=== PATIENT | male | born 1965 | race African-American/Black ===

== ENCOUNTER → 2018-08-04 06:40 | Outpatient (CLI) | payer OTHER, SELFPAY ==
[2018-07-17 06:29] VITALS: BMI 32.3
--- NOTE | 2018-08-04 07:42 | CT_ITS ---
STUDY: CT CHEST WITHOUT CONTRAST REASON FOR EXAM: Male, 53 years old. Pulmonary silicosis RADIATION DOSAGE (If Supplied By Facility): CTDIvol = ( 14.8 ) mGy, DLP = ( 528.65 ) mGycm TECHNIQUE: Transaxial imaging was performed without the administration of intravenous contrast material. Coronal and sagittal reformatted images were created. Individualized dose optimization techniques were used for this CT. COMPARISON: None FINDINGS: There are scattered mild groundglass opacities noted in the lungs. There are no focal infiltrates or pleural effusions. There are no pulmonary nodules or masses. There is no pneumothorax. The heart and pericardium are within normal limits. There is no thoracic lymphadenopathy. There is no evidence of thoracic aortic aneurysm. Images through the upper abdomen demonstrate no significant abnormality. There are no destructive osseous lesions. CT/Chest without Contrast IMPRESSION: Scattered mild ground glass opacity is noted in the lungs. This is nonspecific and can be due to infection, inflammation or edema. Electronically Signed: Kane García, at 19:35 EST Tel , Service support ,
--- NOTE | 2018-08-04 12:11 | PFT ---
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 Respiratory therapy reports good patient effort. Bronchodilators were used during testing. INTERPRETATION: Forced expiration spirometry demonstrates no evidence of a large airways obstructive ventilatory defect. There was no significant response to aerosolized bronchodilators. Spirograms are of good quality and plateau normally. Body plethysmography was performed and reveals lung volumes to be within normal limits. Diffusing capacity by single breath CO is also within normal limits at 90% of predicted. IMPRESSION: Grossly normal pulmonary function studies.
== END ==
PROVIDERS: Family Provider Family Medicine; PCP Family Medicine; Referring Provider Internal Medicine Critical Care Medicine; Visit Provider Internal Medicine Critical Care Medicine
DX: Z77.29 Contact with and (suspected) exposure to other hazardous substances (principal); F17.210 Nicotine dependence, cigarettes, uncomplicated
CPT/HCPCS: 71250; 94060; 94726; 94729

== ENCOUNTER → 2019-08-17 07:00 | Outpatient (CLI) | payer OTHER, SELFPAY ==
[2019-05-22 13:48] VITALS: BMI 32.3
--- NOTE | 2019-08-18 10:05 | PFT ---
INTRODUCTION: The patient is a 54-year-old -[place] male who presents for pulmonary function studies secondary to a diagnosis of chemical exposure. Respiratory therapy reports good patient effort. Bronchodilators were used during testing. INTERPRETATION: Forced expiration spirometry demonstrates no evidence of a large airways obstructive ventilatory defect. There was no significant response to aerosolized bronchodilators, based upon strict ATS criteria. Spirograms are of good quality and plateau normally. Body plethysmography was performed and reveals lung volumes to be within normal limits. Diffusing capacity by single breath CO is also within normal limits. IMPRESSION: Grossly normal pulmonary function studies.
== END ==
PROVIDERS: PCP Family Medicine; Referring Provider Internal Medicine Critical Care Medicine; Visit Provider Internal Medicine Critical Care Medicine
DX: Z77.29 Contact with and (suspected) exposure to other hazardous substances (principal); F17.210 Nicotine dependence, cigarettes, uncomplicated
CPT/HCPCS: 94060; 94726; 94729

== ENCOUNTER → 2023-12-23 | Outpatient (CLI) | payer OTHER, SELFPAY | END | disposition home or self-care (01) | PROVIDERS: PCP Family Medicine; Referring Provider Internal Medicine Critical Care Medicine; Visit Provider Internal Medicine Critical Care Medicine | DX: F17.210 Nicotine dependence, cigarettes, uncomplicated (principal) | CPT/HCPCS: 94060; 94726; 94729 ==

== ENCOUNTER → 2024-03-11 | Outpatient (CLI) | payer OTHER, SELFPAY ==
--- NOTE | 2024-03-11 16:37 | CT_ITS ---
STUDY: CT CHEST WITHOUT CONTRAST REASON FOR EXAM: Male, 58 years old. Silica exposure, f/u G[facility] on prior CT RADIATION DOSAGE (If Supplied By Facility): CTDIvol = ( 18.89 ) mGy, DLP = ( 764.78 ) mGycm TECHNIQUE: Transaxial imaging was performed without the administration of intravenous contrast material. Multiplanar coronal and sagittal images were reformatted. Individualized dose optimization techniques were used for this CT. COMPARISON: Comparison is made with prior study dated February 01, 2019 and outside examination dated October 15, 2023.. FINDINGS: CHEST Residual focal area of groundglass appearance in the lateral aspect of the right middle lobe. This has improved as compared to prior study. There is also evidence of groundglass appearance in the posterior aspect of the right middle lobe. This is unchanged. Focal areas of groundglass appearance once again seen in the lower lobes bilaterally slightly more prominent on the right side. These have improved as compared to prior study. There is no demonstrated pleural abnormality. There are mild calcifications of the coronary arteries. There are multiple small lymph nodes within the mediastinum, which are normal in size and morphology most compatible with reactive lymph hyperplasia. Normal hilar regions. Normal unenhanced pulmonary arteries. There is atherosclerotic calcification of the aortic arch. Normal osseous structures. There is no demonstrated abnormality of the visualized upper abdomen. CT/Chest without Contrast IMPRESSION: Persistent bilateral areas of groundglass opacities although they have improved as compared to prior study. Electronically Signed: Stone Valenzuela MD at 15:08 EDT ,
== END | disposition home or self-care (01) ==
LOC: CT 16:36
PROVIDERS: PCP Family Medicine; Referring Provider Internal Medicine Critical Care Medicine; Visit Provider Internal Medicine Critical Care Medicine
DX: Z77.29 Contact with and (suspected) exposure to other hazardous substances (principal); F17.210 Nicotine dependence, cigarettes, uncomplicated
CPT/HCPCS: 71250